=== PATIENT | male | born 1935 | race Caucasian/White ===

== ENCOUNTER → 2016-06-15 | Outpatient (CLI) | payer MEDICARE, OTHER ==
[~2016-06-15] MED LIST: ASPIRIN PO; FISH OIL 1,0001 EAC1 PO; HYDROCODON-ACE1 EAC7 PO; LIPITOR PO; LISINOPRIL PO; LISINOPRIL5 MG PO; LOVENOX40 MG/0.4 INJ; NEXIUM PO; NITROSTAT0.4 MG SL; PERCOCET5/325 PO; PREVACID PO; TOPROL XL PO; VYTORIN 10-40 M1 TAB PO; VYTORIN PO
--- NOTE | ~2016-06-15 | CT2 ---
[facility] A Service of [facility] & [facility] RADIOLOGY TEXT RESULTS PATIENT: MARIANO PEREZ LOCATION: [facility] : 36 UNIT #: [id number] AGE: [address]: Doron Muñoz MD SEX: M ORDER DR: [id number] [facility] [address] [place], [place] [address] [id number] O MR#: [id number] Acc #: [id number] NAME: MARIANO PEREZ : 1935 SEX: M STUDY DATE/TIME: 06/15/2016 11:26 UNIT: [facility] ROOM: STUDY DESCRIPTION: CT Abd and Pelv W Cont Attending Physician: Doron Muñoz M.D. Referring Physician: Doron Muñoz M.D. Ordering Physician: Doron Muñoz M.D. Primary Care Physician: Ana Stephen M.D. MEDICAL IMAGING REPORT This report is preliminary unless electronic signature is present EXAM Abdomen and pelvis CT with contrast 06/15/2016 INDICATIONS 80-year-old male with history of Hodgkin's lymphoma and heart failure. Follow up. Status post chemotherapy a year ago. Observation for suspected neoplasm. Active malignancy. TECHNIQUE Contrast-enhanced abdomen and pelvis CT was performed. This CT exam was performed with one or more of the following radiation dose reduction techniques: automatic exposure control, adjustment of mA and/or kV according to patient size, and iterative reconstruction. COMPARISON STUDIES 12/19/2015. FINDINGS Aorta demonstrates atherosclerotic change. There is no aneurysm or dissection. The patient is status post right hip fracture repair. Small hiatal hernia. Spleen unremarkable. Included lung bases emphysematous. Please see the separately dictated chest CT same date for further details regarding the chest. Adrenal glands are unremarkable. Pancreas unremarkable, along with the gallbladder. Minimal, if any, fatty infiltration of the liver. Kidneys unremarkable. There is wall thickening of the stomach that appears to represent pseudo-thickening from incomplete distension. No adenopathy in the abdomen. CT PELVIS: The prostate is enlarged. Correlate with PSA levels and physical exam findings. It measures up to at least 6.3 cm maximum diameter. Mild bladder wall thickening probably reflects an element of STS. [facility] A Service of [facility] & [facility] RADIOLOGY TEXT RESULTS PATIENT: MARIANO PEREZ LOCATION: [facility] : 36 UNIT #: [id number] AGE: [address]: Doron Muñoz MD SEX: M ORDER DR: chronic outlet obstruction. There is a left inguinal hernia containing fat only. No drainable fluid collection in the pelvis. Moderate stool burden in the colon. Bowel otherwise unremarkable. Appendix normal. Inguinal canals are unremarkable. 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 There is grade 1 antegrade listhesis of L5 on S1. There is a compression fracture deformity at L3, chronic and unchanged. No new suspicious bone lesion. IMPRESSION 1. No clearly acute process in the pelvis. No adenopathy identified. 2. Stable prostatomegaly. 3. Small hiatal hernia. 4. Chronic compression fracture of L3, unchanged. 5. 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 This is also stable. 6. Pseudo-thickening or chronic thickening of the gastric wall. Correlate with any history of gastritis. Dictated by... Christian Conn M.D. THIS IS AN ELECTRONICALLY VERIFIED REPORT Christian Conn M.D. at 06/16/2016 10:37 AM Jack TD: 06/15/2016 21:52 JOB #: [id number] MEDICAL IMAGING REPORT Page 1 of 1 COPY
--- NOTE | ~2016-06-15 | CT55 ---
[facility] A Service of [facility] & [facility] RADIOLOGY TEXT RESULTS PATIENT: MARIANO PEREZ [facility] UNIT #: [id number] AGE: [address]: Doron Muñoz MD SEX: M ORDER DR: [id number] [facility] [address] [place], [place] [address] [id number] O MR#: [id number] Acc #: [id number] NAME: MARIANO PEREZ : 1935 SEX: M STUDY DATE/TIME: 06/15/2016 11:26 UNIT: [facility] ROOM: STUDY DESCRIPTION: CT Chest W Con Attending Physician: Doron Muñoz M.D. Referring Physician: Doron Muñoz M.D. Ordering Physician: Doron Muñoz M.D. Primary Care Physician: Ana Stephen M.D. MEDICAL IMAGING REPORT This report is preliminary unless electronic signature is present EXAM Chest CT with contrast 06/15/2016 INDICATIONS Hodgkin lymphoma heart failure follow up. Status post chemotherapy a year ago. Observation for suspected malignant neoplasm. Active malignancy. TECHNIQUE Contrast enhanced chest CT was performed and compared with 12/19/2015. This CT exam was performed with one or more of the following radiation dose reduction techniques: automatic control, adjustment of mA and/or kV according to patient size, and iterative reconstruction. FINDINGS CT CHEST: The lungs are emphysematous. No pleural effusion. There is chronic scarring and fibrotic change in the right lung most conspicuously in the right lung apex and to a lesser extent the right middle lobe. No new suspicious pulmonary nodule. Calcified granulomas are present. Reactive-appearing axillary nodes on the right are stable. Included thyroid unremarkable. No pericardial effusion or new mediastinal adenopathy. 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 No dissection. Small hiatal hernia. Included upper abdomen demonstrates no acute finding. Osseous structures demonstrate spinal degenerative change but no suspicious bone lesion or compression fracture. IMPRESSION 1. Negative contrast-enhanced CT of the chest. 2. Incidental scarring and fibrotic change in the right lung and old healed granulomatous disease. 3. Small hiatal hernia. STS. [facility] A Service of [facility] & [facility] RADIOLOGY TEXT RESULTS PATIENT: MARIANO PEREZ LOCATION: [facility] : 36 UNIT #: [id number] AGE: [address]: Doron Muñoz MD SEX: M ORDER DR: Dictated by... Christian Conn M.D. THIS IS AN ELECTRONICALLY VERIFIED REPORT Christian Conn M.D. at 06/16/2016 10:37 AM BEVERLY/mayo TD: 06/15/2016 21:45 JOB #: [id number] MEDICAL IMAGING REPORT Page 1 of 1 COPY
[2016-06-15 16:31] LABS: POC - CREATININE 0.97 mg/dL (0.64-1.27); POC - GFR >60.0 mL/min (>60)
== END | disposition home or self-care (01) ==
LOC: CCAT 10:23
PROVIDERS: Internal Medicine Hematology
DX: C81.00 Nodular lymphocyte predominant Hodgkin lymphoma, unspecified site (principal); I50.9 Heart failure, unspecified; K44.9 Diaphragmatic hernia without obstruction or gangrene; N40.0 Benign prostatic hyperplasia without lower urinary tract symptoms; M48.56XD Collapsed vertebra, not elsewhere classified, lumbar region, subsequent encounter for fracture with routine healing
CPT/HCPCS: 71260; 74177; 82565; Q9967